=== PATIENT | male | born 1995 | race Caucasian/White ===

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

== ENCOUNTER 2017-04-21 22:48 | Observation (INO) | payer BC ==
[2017-04-21] MEDS ORDERED: Albuterol 2.5 MG/3 ML NEB.SOL* (0.083%) INH ONE (23:12)
[2017-04-21] MEDS ORDERED: Albuterol 2.5 MG/3 ML NEB.SOL* (0.083%) ONE ×2 (23:13)
[2017-04-21] MEDS ORDERED: Magnesium Sulfate 2 GM IV* 2 GM/50 ML BAG IVPB ONE (23:31)
[2017-04-21] MEDS ORDERED: methylPREDNISolone 125 MG* 2 ML VIAL IV ONE (23:31)
[2017-04-21] MEDS ORDERED: NS 0.9% 1000 ML* 1,000 ML IV ONE (23:31)
[2017-04-22 00:36] LABS: Hematocrit 51 % (42-52); Hemoglobin 17.4 g/dl (14.0-18.0); Mean Corpuscular HGB Conc 34 g/dl (31-36); Mean Corpuscular Hemoglobin 29 pg (27-31); Mean Corpuscular Volume 85 fL (80-94); Mean Platelet Volume 8 um3 (7.4-10.4); Red Blood Count 6.04 10^6/ul (4.0-5.4); Red Cell Distribution Width 14 % (10.5-15); White Blood Count 14.2 10^3/ul (3.5-10.8)
[2017-04-22 00:50] LABS: ALT 17 U/L (7-52); Albumin 4.8 g/dL (3.2-5.2); Alkaline Phosphatase 74 U/L (34-104); BUN/Creatinine Ratio 9.6 (8-20); Blood Urea Nitrogen 14 mg/dL (6-24); C Reactive Protein 1.89 mg/L (< 5.00); CO2 Carbon Dioxide 26 mmol/L (22-32); Calcium 9.5 mg/dL (8.6-10.3); Chloride 106 mmol/L (101-111); EGFR Non-African American 62.2 (>60); Globulin 3.2 g/dL (2-4); Glucose 88 mg/dL (70-100); Sodium 140 mmol/L (133-145)
[2017-04-22] MEDS ORDERED: Levalbuterol 1.25MG/0.5ML NEB INH ONE (00:55)
[2017-04-22] MEDS ORDERED: Ipratropium 0.5MG/2.5ML NEB* 0.5 MG/2.5 ML NEB.SOLN INH ONE (00:55)
[2017-04-22] MEDS ORDERED: Ipratropium 0.5MG/2.5ML NEB* 0.5 MG/2.5 ML NEB.SOLN ONE (00:59)
[2017-04-22] MEDS ORDERED: Levalbuterol 1.25MG/0.5ML NEB ONE (00:59)
[2017-04-22 01:13] LABS: Anion Gap 8 mmol/L (2-11)
[2017-04-22] MEDS ORDERED: Acetaminophen TAB* 325 MG PO PRN (02:34)
[2017-04-22] MEDS ORDERED: Ondansetron INJ* 2 MG/ML VIAL IV PRN (02:34)
[2017-04-22] MEDS ORDERED: Albuterol 2.5 MG/3 ML NEB.SOL* (0.083%) INH PRN (02:34)
[2017-04-22] MEDS ORDERED: NS 0.9% 1000 ML* 1,000 ML IV SCH (02:45)
[2017-04-22] MEDS ORDERED: Potassium Chlor TAB* 20 MEQ TAB.ER PO ONE (04:25)
[2017-04-22] MEDS ORDERED: Azithromycin TAB* 250 MG PO ONE (06:00)
--- NOTE | 2017-04-22 07:45 | RAD ---
Indication: Dyspnea. Chest tightness. Cough and fever. Asthma. Comparison: No relevant prior exams available on the [facility] P[facility] for comparison. Technique: Upright AP 2337 hours Report: Clear lungs and pleural spaces. Negative for pneumothorax. The heart, pulmonary vasculature, and mediastinal contours are unremarkable. Unremarkable osseous structures and soft tissue contours. IMPRESSION: No evidence for pneumonia or other acute pulmonary or cardiac process. Negative exam.
--- NOTE | 2017-04-22 08:26 | HP ---
ADMISSION HISTORY AND PHYSICAL: DATE OF ADMISSION: 04/22/17 PRIMARY CARE PROVIDER: "Dr. Baum" at [facility]. HEALTHCARE PROXY: His father. CODE STATUS: Full. SOURCE OF INFORMATION: History obtained from interview with the patient and his father. RELIABILITY: Good. CHIEF COMPLAINT: Shortness of breath. HISTORY OF PRESENT ILLNESS: This is a 21-year-old male with past medical history of asthma, who revealed 2 days prior to presentation, felt increased shortness of breath that felt like "mucus in his lungs" with worsening shortness of breath over today. [place] like cold weather was a trigger, which it has been in the past. Usually uses one puff of his albuterol per day up to 3 times per week, with 1 to 2 nighttime awakening per week. He has been never been hospitalized or to the emergency room for asthma in the past. Today he used his inhaler 10 times and his nebulizer 3 times with some improvement, although continuing shortness of breath. He has noted a cough for 2 to 3 days in addition to sick contacts with his mother and father who have also been coughing and had sinus congestion for the same duration of time. The patient has noticed sinus pressure as well as a mild headache. He has taken no NSAIDs recently except for a DayQuil today. He has noticed no change in his urination , symptoms or discharge. He does note a recent trip to [place] driving of which he just returned on , where he thinks he may have had decreased hydration. He was interviewed in the absence of his father, where he denies any restriction in his diet nor other drug use other than rare marijuana. When the patient presented to the emergency room, he was noted to be short of breath, 90% to 92% on room air with peak flow of just greater than 200, improved to 450 when seen by this author after administration of magnesium, ipratropium, albuterol nebulizers, and steroids. 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 Notes that temperature, stress, and anxiety can cause angioedema. Has involved his throat. SOCIAL HISTORY: Currently working at [employer]. Plans on going back to school. Occasional tobacco. No alcohol. Rare marijuana. Lives with his mother and father. FAMILY HISTORY: Mother with type 2 diabetes and bladder cancer. with diabetes and asthma. Sister has been noted to have proteinuria, which has been blamed on her premature . ALLERGIES: To AMOXICILLIN, CEFADROXIL, MONTELUKAST, PENICILLINS, and DIPHENHYDRAMINE. MEDICATIONS: Reviewed with patient. 1. Albuterol HFA or nebulizer p.r.n. as needed. REVIEW OF SYSTEMS: As per HPI. Otherwise, all other systems negative. PHYSICAL EXAMINATION VITAL SIGNS: Weight is 133/52, heart rate is 141 seen by this author, 96% on room air. T-max in the emergency room is 99.1. HEENT: His oropharynx is clear. He has moist mucous membranes. Sclerae anicteric. He has non-elevated JVD. No supraclavicular or cervical lymphadenopathy. LUNGS: Decreased aeration at the bases. Scattered wheezes, loudest in right mid lung. HEART: He is tachycardic. Heart rate is regular. No murmurs, rubs, or gallops. ABDOMEN: Soft, nontender, nondistended. EXTREMITIES: Warm and well perfused without clubbing, cyanosis, or edema. He has good skin turgor. He has scarring over this right knuckles. NEURO: He is not notably anxious. He is fidgety. Moves around a lot. Apparently some stress or anxiety that he denies. No depression. No agitation. PERTINENT LABORATORY DATA: Notable for white blood cell count of 14, which is 75% neutrophils, hemoglobin 17.4, and platelets 294. Sodium 140, chloride 106, BUN 14, creatinine 1.46, increased from prior of 0.9 0. Urinalysis is pending. Chest x-ray reviewed by this author, no apparent cardiopulmonary disease. EKG is pending at this time. ASSESSMENT AND PLAN: This is a 21-year-old man with past medical history of asthma, presenting with wheeze, increased shortness of breath, tachycardia, and acute kidney failure by RIFLE criteria. 1. Asthma exacerbation, improving by peak flow as well as clinically with the administration of albuterol, ipratropium, magnesium, and steroids. We will continue prednisone tomorrow 40 mg daily, albuterol as needed while awake, and peak flows every 6 hours, monitor for improvement. In the setting of his cough , sinus congestion headache, as well as sick contacts, he may have had bronchitis contributing to his asthma exacerbation of a greater severity that he has experienced since diagnosis. I will treat him with azithromycin 500 mg in the morning and then 250 mg for 4 additional days. 2. Tachycardia suspected in the setting of albuterol, although we will check EKG. Continue normal saline for 2 additional liters. 3. Acute kidney injury, unclear etiology. Denies all NSAID use, although additionally has a sister with what sounds like glomerular nephropathy. Urinalysis is pending at this time to check for protein. Unclear how his history of angioedema may link his current diagnoses together. 4. DVT prophylaxis. Low risk. Ambulate ad pati. [id number]/[facility] #: [id number] MTDNataly
[2017-04-22 08:58] VITALS: BP 99/28
[2017-04-22] MEDS ORDERED: predniSONE TAB* 20 MG PO SCH (09:00)
[2017-04-22] MEDS ORDERED: Levalbuterol 1.25MG/0.5ML NEB INH PRN (11:50)
[2017-04-22 12:17] LABS: Urine Bilirubin Negative (Negative); Urine Glucose 2+(150 mg/dL) (Negative); Urine Nitrite Negative (Negative)
[2017-04-22 12:23] LABS: BUN/Creatinine Ratio 22.2 (8-20); Calcium 9.3 mg/dL (8.6-10.3); EGFR African American 157.9 (>60); EGFR Non-African American 122.8 (>60); Potassium 4.1 mmol/L (3.5-5.0)
--- NOTE | 2017-04-22 15:53 | DCNOTE ---
Patient seen this morning and again in the afternoon. Feeling "95% better". Tachycardia improved over the course of the day. On exam, some diffuse inspiratory wheezing, some mild expiratory wheezing, good air movement Plan to discharge home with PO steroids, ABx. Refill home nebulizer solution.
--- NOTE | 2017-04-23 08:58 | DS ---
DISCHARGE SUMMARY: DATE OF ADMISSION: 04/21/17 DATE OF DISCHARGE: 04/22/17 PRIMARY CARE PHYSICIAN: Dr. Baum. PRINCIPAL DISCHARGE DIAGNOSIS: Asthma exacerbation. SECONDARY DIAGNOSES: History of attention deficit hyperactivity disorder, depression, physical urti caria, and angioedema. DISCHARGE MEDICATION REGIMEN: 1. Albuterol inhaler 2 puffs inhaled every 4 hours as needed for shortness of breath or wheezing. 2. Prednisone 40 mg by mouth daily. 3. Azithromycin 250 mg by mouth daily x4 doses. 4. Albuterol nebulizer 2.5 mg inhaled every 6 hours as needed for shortness of breath or wheezing. STUDIES DONE DURING HOSPITALIZATION: Chest x-ray. Impression: No evidence for pneumonia or other acute pulmonary or cardiac process. HISTORY OF PRESENT ILLNESS AND HOSPITAL SUMMARY: Please see the full history and physical by Dr. Almaz Francis for full details. Briefly, Mr. Wilburn is a 21-year- old man with a past medical histor y as above, who presented to the hospital with shortness of breath, diffuse wheezing, and cough. Th e patient had diffuse wheezing on exam. He was treated with steroids, magnesium, prednisone, and wa s started on azithromycin. He was also given 2 L of IV fluids as he was fairly tachycardic on admis veronika. He had evidence of FLAVIO, which resolved as well. Over the course of the day, the patient's symptoms improved significantly. He stated he was "95%" b ack to normal. His tachycardia improved. I suspect this is persistent to some degree due to predni sone and albuterol. The patient was able to ambulate around the unit with no issues. He will be di scharged home to complete 4 additional days of azithromycin as well as prednisone. He should follow up with his PCP as an outpatient. TIME SPENT: Total time spent on this discharge 45 minutes. This is a summary of the hospitalization. Please see the full medical record for further details. [id number]/[facility] #: [id number]
[2017-04-23] MEDS ORDERED: Azithromycin TAB* 250 MG PO SCH (09:00)
--- NOTE | 2017-04-23 12:38 | ED ---
Mikey Pinedo Alfonso, scribed for Antwan Gill MD on 04/21/17 at 2334 . Shortness of Breath - HPI Summary HPI Summary: This patient is a 21 year old M presenting to [facility] accompanied by father with a chief complaint of SOB since yesterday, worse since 8 hours ago. The patient states it felt like I was breathing through a straw 30 minutes ago. The patient rates the pain 0/10 in severity. Symptoms alleviated by breathing treatment in the ED. Patient reports rhinorrhea, cough, sinus pressure, and headache. Patient denies sore throat. Occasional tobacco use. Father reports he had similar symptoms four months ago with a diagnosis of bronchitis. PMHx includes asthma. - History of Current Complaint Chief Complaint: EDShortnessOfBreath Time Seen by Provider: 04/21/17 23:18 Hx Obtained From: Patient, Family/Sharepoint Designer Developer Onset/Duration: Gradual Onset, Lasting Days - yesterday, Worse Since - 8 hrs Timing: Constant Aggrevating Factors: Nothing Alleviating Factors: Other - breathing treatment - Allergy/Home Medications Allergies/Adverse Reactions: Allergies Allergy/AdvReac Type Severity Reaction Status Date / Time Amoxicillin Allergy Mild Rash And Verified 04/21/17 22:57 Itching Cefadroxil Allergy Mild Rash And Verified 04/21/17 22:57 Itching Montelukast [From Singulair] Allergy Mild Rash And Verified 04/21/17 22:57 Itching Penicillins Allergy Mild Itching Verified 04/21/17 22:57 Diphenhydramine Allergy Itching Verified 04/21/17 22:57 [From Benadryl] PMH/Surg Hx/FS Hx/Imm Hx Cardiovascular History: Denies: Hx Pacemaker/ICD Respiratory History: Reports: Hx Asthma - albuterol - PRN Sensory History: Denies: Hx Hearing Aid Opthamlomology History: Denies: Hx Legally Blind EENT History: Denies: Hx Deafness Psychiatric History: Reports: Hx Attention Deficit Hyperactivity Disorder, Hx Eating Disorder Denies: Hx Panic Disorder - Immunization History Date of Tetanus Vaccine: UTD Infectious Disease History: No Infectious Disease History: Denies: History Other Infectious Disease, Traveled Outside the [place] in Last 30 Days - Family History Known Family History: Positive: Diabetes - both parents Negative: Cardiac Disease, Hypertension - Social History Alcohol Use: None Substance Use Type: Reports: None Hx Tobacco Use: Yes Smoking Status (MU): Current Some Day Smoker Review of Systems Positive: Nasal Discharge, Other - sinus pressure. Negative: Sore Throat Positive: Shortness Of Breath, Cough Positive: Headache All Other Systems Reviewed And Are Negative: Yes Physical Exam - Summary Physical Exam Summary: VITAL SIGNS: Reviewed. GENERAL: Patient is a well-developed and nourished male who is lying comfortable in the stretcher. Patient is not in any acute respiratory distress. Able to speak in full sentences. HEAD AND FACE: No signs of trauma. No ecchymosis, hematomas or skull depressions. No sinus tenderness. EYES: PERRLA, EOMI x 2, No injected conjunctiva, no nystagmus. EARS: Hearing grossly intact. Ear canals and tympanic membranes are within normal limits. MOUTH: Oropharynx within normal limits. NECK: Supple, trachea is midline, no adenopathy, no JVD, no carotid bruit, no c- spine tenderness, neck with full ROM. CHEST: Symmetric, no tenderness at palpation LUNGS: Decreased breath sounds bilaterally. Slight wheezing. CVS: Regular rate and rhythm, S1 and S2 present, no murmurs or gallops appreciated. ABDOMEN: Soft, non-tender. No signs of distention. No rebound no guarding, and no masses palpated. Bowel sounds are normal. EXTREMITIES: FROM in all major joints, no edema, no cyanosis or clubbing. NEURO: Alert and oriented x 3. No acute neurological deficits. Speech is normal and follows commands. SKIN: Dry and warm Triage Information Reviewed: Yes Vital Signs On Initial Exam: Initial Vitals Temp Pulse Resp BP Pulse Ox 99.1 F 120 26 137/70 88 04/21/17 22:53 04/21/17 22:53 04/21/17 22:53 04/21/17 22:53 04/21/17 22:53 Vital Signs Reviewed: Yes Diagnostics - Vital Signs Vital Signs Temp Pulse Resp BP Pulse Ox 04/21/17 22:53 99.1 F 120 26 137/70 88 - Laboratory Result Diagrams: 04/21/17 23:10 04/22/17 01:49 Lab Statement: Any lab studies that have been ordered have been reviewed, and results considered in the medical decision making process. - Radiology CXR Radiology Interpretation Completed By: ED Physician - NAD Course/Dx - Course Assessment/Plan: This patient is a 21 year old M presenting to [facility] accompanied by father with a chief complaint of SOB since yesterday, worse since 8 hours ago. The patient states it felt like I was breathing through a straw 30 minutes ago. The patient rates the pain 0/10 in severity. Symptoms alleviated by breathing treatment in the ED. Patient reports rhinorrhea, cough, sinus pressure, and headache. Patient denies sore throat. Occasional tobacco use. Father reports he had similar symptoms four months ago with a diagnosis of bronchitis. PMHx includes asthma. CXR reveals NAD. Test results with no significant abnormalities except for WBC of 14.2, potassium of 3.3 for which the patient was given potassium chloride. In the ED course the patient was given IV fluids, duonebs, solumedrol, and magnesium for his asthma exacerbation. The patient became tachycardia therefore I changed the albuterol to xopenex. The patient is feeling better. However, he is still tight with diffuse wheezing. Therefore, I consulted Dr. Francis (hospitalist) who agrees to admit. The patient is hemodynamically stable and alert and oriented x3. - Diagnoses Provider Diagnoses: Asthma exacerbation - Physician Notifications Discussed Care of Patient With: Quinton Francis Time Discussed With Above Provider: 00:48 Instructed by Provider To: Other - Consulted Dr. Francis (hospitalist) who agrees to admit. Discharge - Discharge Plan Condition: Stable Disposition: ADMITTED TO [facility] The documentation as recorded by the Mikey manrique Alfonso accurately reflects the service I personally performed and the decisions made by me, Antwan Gill MD.
== END 2017-04-22 16:30 | disposition home or self-care (01) ==
LOC: ED 22:48 → MEDTELE 04-22 02:34
PROVIDERS: ADMIT Internal Medicine; ATTEND Hospitalist
DX: J45.901 Unspecified asthma with (acute) exacerbation (principal); R00.0 Tachycardia, unspecified; F90.9 Attention-deficit hyperactivity disorder, unspecified type; F32.9 Major depressive disorder, single episode, unspecified; Z88.0 Allergy status to penicillin; Z88.8 Allergy status to other drugs, medicaments and biological substances; N17.9 Acute kidney failure, unspecified; F17.200 Nicotine dependence, unspecified, uncomplicated
CPT/HCPCS: 36415; 71010; 80048; 80053; 81003; 83605; 85025; 86140; 87070; 87205; 93005; 94640; 96361; 96365; 96375; 99284; A9270-GY; G0378; J2930; J3475; J7512; J7644

== ENCOUNTER 2017-07-18 15:27 | Emergency (ER) | payer BC ==
[2017-07-18 15:45] VITALS: BP 144/55
--- NOTE | 2017-07-18 16:15 | RAD ---
INDICATION: RIGHT hand pain and swelling following punching injury. COMPARISON: August 01, 2016 RIGHT wrist TECHNIQUE: AP, lateral, and oblique views RIGHT hand. REPORT: Segmental comminuted mildly impacted fracture at the diaphysis of the fifth metacarpal with approximate 45 degrees apex dorsal angulation and overlying soft tissue swelling. Negative for additional fracture. Normal articular alignment. IMPRESSION: Nonarticular comminuted apex dorsal angulated fifth metacarpal fracture.
--- NOTE | 2017-07-18 16:28 | UC ---
Hand/Wrist HPI - HPI Summary HPI Summary: Patient presents with traumatic injury of the right hand, he got mad and punched a wall. He has soft tissue swelling and deformity noted of the fifth metacarple bone, He reports pain and swelling of the area. He denies numbness r tingling of the finger, he is able to move finger except the little finger. He denies and wrist, forearm of elbow pain. He states the pain is constant and worse with movement. - History Of Current Complaint Hx Obtained From: Patient, Family/Baseball Inspector And Repairer ?: No Onset/Duration: Sudden Onset Severity Initially: Moderate Severity Currently: Moderate Character Of Pain: Sharp Aggravating Factor(s): Movement, Lifting Alleviating Factor(s): Rest Associated Signs And Symptoms: Positive: Negative <Pamela Webber - Last Filed: 07/18/17 16:22> <Rosemary Gonzalez - Last Filed: 07/18/17 17:02> - History Of Current Complaint Chief Complaint: UCUpperExtremity Stated Complaint: HAND INJURY Time Seen by Provider: 07/18/17 15:54 - Allergies/Home Medications Allergies/Adverse Reactions: Allergies Allergy/AdvReac Type Severity Reaction Status Date / Time Amoxicillin Allergy Mild Rash And Verified 07/18/17 15:45 Itching Cefadroxil Allergy Mild Rash And Verified 07/18/17 15:45 Itching Montelukast [From Singulair] Allergy Mild Rash And Verified 07/18/17 15:45 Itching Penicillins Allergy Mild Itching Verified 07/18/17 15:45 Diphenhydramine Allergy Itching Verified 07/18/17 15:45 [From Benadryl] Home Medications: Home Medications NK [No Home Medications Reported] 07/18/17 [History Confirmed 07/18/17] PMH/Surg Hx/FS Hx/Imm Hx Previously Healthy: Yes - Surgical History Surgical History: None - Family History Known Family History: Positive: Diabetes - both parents Negative: Cardiac Disease, Hypertension - Social History Occupation: Student Lives: With Family Alcohol Use: None Substance Use Type: Marijuana Smoking Status (MU): Never Smoked Tobacco - Immunization History Vaccination Up to Date: Yes <Pamela Webber - Last Filed: 07/18/17 16:22> Review of Systems Constitutional: Negative Skin: Negative Eyes: Negative ENT: Negative Respiratory: Negative Cardiovascular: Negative Gastrointestinal: Negative Genitourinary: Negative Motor: Negative Neurovascular: Negative Musculoskeletal: Negative - right hand, Arthralgia, Decreased ROM, Edema, Myalgia Neurological: Negative Psychological: Negative Is Patient Immunocompromised?: No All Other Systems Reviewed And Are Negative: Yes <WebberPamelaporfirio Pinto - Last Filed: 07/18/17 16:22> Physical Exam Triage Information Reviewed: Yes Appearance: Well-Appearing Vital Signs: Initial Vital Signs Temp 98.9 F 07/18/17 15:31 Pulse 91 07/18/17 15:31 Resp 20 07/18/17 15:31 BP 144/55 07/18/17 15:31 Pulse Ox 100 07/18/17 15:31 Vital Signs Reviewed: Yes Eye Exam: Normal ENT Exam: Normal Neck exam: Normal Neck: Positive: 1 Respiratory Exam: Normal Cardiovascular Exam: Normal Abdominal Exam: Normal Musculoskeletal: Positive: Strength Limited @, ROM Limited @, Edema @, Other: - right hand inspection, soft tissue swelling noted over mid-shaft of the fifth metatarsal bone palpation, pain to palpation of the shaft of fifth metatarsal bone rom, unable to flex/extend the fifth finger vasc, radial and ulnar pulses palpable. neuro, no deficits to touch distal Neurological Exam: Normal Psychological Exam: Normal Skin Exam: Normal <Pamela Webber - Last Filed: 07/18/17 16:22> Vital Signs: Initial Vital Signs Temp 98.9 F 07/18/17 15:31 Pulse 91 07/18/17 15:31 Resp 20 07/18/17 15:31 BP 144/55 07/18/17 15:31 Pulse Ox 100 07/18/17 15:31 <Rosemary Gonzalez - Last Filed: 07/18/17 17:02> Hand/Wrist Course/Dx - Course Course Of Treatment: Patien presents s/p traumatic injury of the fifth metatarsal right hand. xrays revealed a fracture, the findings were discussed with the patient and he was given a copy of the report. He was referred to Dr. Kingsley and told to keep the splint on at all times, he was re-evaluted after the application of the splint and her remained neuro-vasc intact. Pain addressed with ibuprofen. Discharged home in stable condition. - Differential Dx/Diagnosis Differential Diagnosis/HQI/PQRI: Fracture Provider Diagnoses: fracture metatarsal <Pamela Webber - Last Filed: 07/18/17 16:22> Discharge <Pamela Webber - Last Filed: 07/18/17 16:22> <Rosemary Gonzalez - Last Filed: 07/18/17 17:02> - Discharge Plan Condition: Stable Disposition: HOME Patient Education Materials: Hand Fracture (ED) Referrals: Brian Baum MD [Primary Care Provider] - Quinton Kingsley MD [Medical Doctor] - Additional Instructions: You need to call tomorrow for follow up of the fracture. Attestation Statement User Type: Provider - I was available for consult. This patient was seen by the [facility]ARA. The patient was not presented to, seen by, or examined by me. -Wenceslao <Rosemary Gonzalez - Last Filed: 07/18/17 17:02>
== END 2017-07-18 16:20 | disposition home or self-care (01) ==
LOC: UCEAST 15:27
DX: S62.326A Displaced fracture of shaft of fifth metacarpal bone, right hand, initial encounter for closed fracture (principal); X83.8XXA Intentional self-harm by other specified means, initial encounter; Y93.89 Activity, other specified; Y92.9 Unspecified place or not applicable; Y99.9 Unspecified external cause status
CPT/HCPCS: 99211; G0463

== ENCOUNTER 2017-07-25 10:18 | Day surgery (SDC) | payer BC ==
--- NOTE | 2017-07-22 21:10 | HP ---
HISTORY AND PHYSICAL: DATE OF ADMISSION/SURGERY: 07/25/17 SURGEON: Quinton Kingsley MD.* (DICTATED BY KATY MAGALLANES) PROCEDURE: Right hand fifth metacarpal closed versus open reduction and pinning. CHIEF COMPLAINT: Right hand pain. HISTORY OF PRESENT ILLNESS: Charles is a 22-year-old male who reportedly punched a wall earlier today. He instantly felt pain in his right hand. He is right hand dominant. He was seen at [facility] and x-rays showed a fracture of the right fifth metacarpal. He was referred to our clinic. PAST MEDICAL HISTORY: 1. Asthma. 2. 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 3. Multiple concussions. PAST SURGICAL HISTORY: None. MEDICATIONS: Albuterol inhaler as needed. ALLERGIES: PENICILLIN causing hives and rashes, AMOXICILLIN hives and rashes, BENADRYL hives and rashes, SINGULAIR hives and rashes. He denies any allergy to latex or adhesive tape. FAMILY HISTORY: Both parents are diabetic. Father has history of bladder cancer. SOCIAL HISTORY: The patient denies any use of tobacco or alcohol. He does endorse occasionally smoking marijuana and otherwise denies illicit drug use. REVIEW OF SYSTEMS: Positive for his current complaint and numbness and tingling in his right hand. Otherwise, he endorses being able to walk a flight of stairs or a city block without stopping. He denies any history of anesthesia problems. He denies a history of DVT or PE. He also denies history of MRSA, hepatitis C, HIV infections. Otherwise, a 14-point review of systems including HEENT, integumentary, cardiothoracic, pulmonary, GI, , musculoskeletal, neurological, endocrine, and hematological systems were negative. PHYSICAL EXAMINATION GENERAL: Charles is a well-nourished, well-developed 22-year-old male in no acute distress. He is alert and oriented x3. He ambulates without a limp. He has normal mood and affect. VITAL SIGNS: Height 67 inches, weight 140 pounds. Pulse 61, blood pressure 140 /60, respirations 20, temperature 98.2. Pain level 0. BMI 21.9. HEENT: Normocephalic, atraumatic, pupils equally round and reactive to light, extraocular movements intact. NECK: Supple, no palpable cervical lymph nodes, thyroid is smooth and nontender. PULMONARY: Lungs clear to auscultation bilaterally with no wheezes, rales or rhonchi. CARDIAC: Regular rate and rhythm with no murmurs, rubs or gallops. No pedal edema, 2+ radial pulse bilaterally. ABDOMEN: Soft and nontender. NEUROLOGIC: Sensation intact to light touch bilaterally. On his right hand, sensation is grossly intact at the first dorsal webspace, volar, index and long finger and the ulnar side of his small finger. MUSCULOSKELETAL: Right hand, skin is intact. He does have swelling about the dorsal ulnar portion of his hand. Fifth finger is slightly shortened and does rotate radially with movement. 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 STUDIES: X-rays from [facility] were reviewed, which show a comminution at the fifth metacarpal of his right hand. IMPRESSION: Fracture of the fifth metacarpal bone, right hand. PLAN: Charles is scheduled to undergo right hand fifth metacarpal closed versus open reduction and pinning with Dr. Kingsley on 07/25/17. He will return to clinic 7 to 10 days postop for followup and possibly suture removal. Prescription for pain medication will be prescribed at the time of the surgery. KATY MAGALLANES [id number]/[facility] #: [id number] MTDD
[~2017-07-25 10:18] MED LIST: Buffered Lidocaine 0.9% SYRIN* 5 ML/SYR SYRINGE INTRADERM ONE; Dexamethasone IV* 4 MG/ML 1 ML (4 MG) IV SLOW PU ONE; Famotidine IV* 10 MG/ML 2 ML (20 mg) IV ONE
[2017-07-25] MEDS ORDERED: Clindamycin 900 MG IVPREMIX(* 900 MG/50 ML SDV IV ONE (10:44)
[2017-07-25] MEDS ORDERED: Dexamethasone IV* 4 MG/ML 1 ML (4 MG) ONE (11:03)
[2017-07-25] MEDS ORDERED: Famotidine IV* 10 MG/ML 2 ML (20 mg) ONE (11:03)
[2017-07-25] MEDS ORDERED: Midazolam* 1 MG/ML 2 ML VIAL (2 MG) ONE (14:05)
[2017-07-25] MEDS ORDERED: Bupivacaine 0.25% SDV* 30 ML ONE (14:23)
[2017-07-25] MEDS ORDERED: Lidocaine 2% PF * 5 ML VIAL ONE (15:31)
[2017-07-25] MEDS ORDERED: Ondansetron INJ* 2 MG/ML VIAL ONE (15:31)
[2017-07-25] MEDS ORDERED: Propofol* 10 MG/ML 20 ML BTL IV PUSH ONE (15:31)
[2017-07-25] MEDS ORDERED: Naloxone* 0.4 MG/ML 1 ML VIAL IV PRN (15:40)
[2017-07-25] MEDS ORDERED: Ketorolac INJ* 30 MG/ML 1 ML VIAL IV PRN (15:40)
[2017-07-25] MEDS ORDERED: Ketorolac INJ* 30 MG/ML 1 ML VIAL ONE (16:03)
[2017-07-25] MEDS ORDERED: HYDROcodone/ACETAMIN 5-325 MG* 1 TAB ONE ×2 (16:05→16:08)
[2017-07-25 16:27] VITALS: BP 141/70
--- NOTE | 2017-07-26 03:23 | OP ---
DATE OF OPERATION: 07/25/17 - [facility] DATE OF : [birth year] SURGEON: Quinton Kingsley MD PSYCHIATRIC ARNP: KATY Alvarado ANESTHESIOLOGIST: Dr. Pike. ANESTHESIA: General. PRE-OP DIAGNOSIS: Right displaced fifth metacarpal distal third shaft fracture. POST-OP DIAGNOSIS: Right displaced fifth metacarpal distal third shaft fracture. OPERATIVE PROCEDURE: Closed reduction and percutaneous pinning of right fifth metacarpal fracture. INDICATIONS: Charles had a punching injury. He had a displaced fracture. I talked to Charles and his parents about being healed that way or doing surgery to improve the position of the bone. They had wanted to proceed with surgery. ESTIMATED BLOOD LOSS: 1 mL. COMPLICATIONS: None. FINDINGS: As expected. DESCRIPTION OF PROCEDURE: Charles was seen in the preoperative holding area. The correct side, site, and procedure were identified. We came back to the operating room. The arm was prepped and draped in the usual fashion. A time- out was performed. I began by exsanguinating the arm with the Esmarch and the tourniquet was inflated to 250 mmHg. I made a 5-mm skin incision with the 15-blade just proximal to the base of the fifth metacarpal. I introduced a larger K-wire in and made a cortical window to open the bone on the ulnar and proximal aspect of the base. A smaller K-wire was then placed on the T handle luis felipe and the tip was bent so as to be able to guided at the bone. This was then driven up to the fracture site. The fracture was then reduced. The K-wire was driven across the fracture and embedded into the head of the fifth metacarpal. The alignment was very nicely checked on mini C-arm fluoroscopy. On fluoroscopic images, everything looked good. The clinical rotation and alignment was very nice. We went ahead and bent and clipped the wire. This was dressed with Xeroform. The area was infiltrated with 0.25% plain Marcaine as was the fracture site. Little bit of the incision at the pin site was closed with some 4-0 Monocryl suture prior to this. The pin was then well padded and dressed and then an ulnar gutter splint on the intrinsic plus position was applied, leaving them back finger free. Tourniquet was deflated and he was taken to the recovery room in stable condition. [id number]/[facility] #: [id number] MTDNataly
--- NOTE | 2017-07-30 16:56 | RAD ---
INDICATION: Traumatic fracture of the fifth finger operative reduction. COMPARISON: Comparison is made with a prior x-ray study of the right hand from July 18, 2017. TECHNIQUE: 58 seconds of intermittent fluoroscopic guidance were provided and 5 spot films of the right hand were obtained in the operating room. FINDINGS: The films demonstrate placement of a K wire spanning the comminuted fracture of the fifth metacarpal. The bones are in improved alignment and positioning. IMPRESSION: INTRAOPERATIVE CONTROL FILMS. CPT II Codes: 6045F
== END 2017-07-25 16:31 | disposition home or self-care (01) ==
LOC: OREAST 10:18
PROVIDERS: ATTEND Orthopaedic Surgery Hand Surgery
DX: S62.326A Displaced fracture of shaft of fifth metacarpal bone, right hand, initial encounter for closed fracture (principal); W22.8XXA Striking against or struck by other objects, initial encounter; Y92.9 Unspecified place or not applicable; J45.909 Unspecified asthma, uncomplicated
CPT/HCPCS: 76000; C1776; J1100; J1885; J2250; J2405; J2704

== ENCOUNTER 2018-04-05 20:57 | Emergency (ER) | payer BC ==
[2018-04-05] MEDS ORDERED: Albuterol 2.5 MG/3 ML NEB.SOL* (0.083%) INH ONE (21:02)
[2018-04-05 21:08] VITALS: BP 106/53
[2018-04-05] MEDS ORDERED: methylPREDNISolone 125 MG* 2 ML VIAL IV ONE (21:08)
[2018-04-05] MEDS ORDERED: Acetaminophen TAB* 325 MG PO ONE (21:40)
--- NOTE | 2018-04-05 22:08 | UC ---
Respiratory Complaint HPI - HPI Summary HPI Summary: This patient is a 22 [address] old presenting to [facility] accompanied by father with a chief complaint of cough and febrile illness since yesterday. Patient states that he also has asthma and is having trouble breathing with the cough. The pain is rated 0/10 in severity. Symptoms aggravated by nothing. Symptoms alleviated by nothing. Patient states he took his nebulizer before arriving, but to very little relief. Patient additionally reports yellowish-green phlegm. - History of Current Complaint Stated Complaint: FEVER,TROUBLE BREATHING,ASTHMA Time Seen by Provider: 04/05/18 21:01 Hx Obtained From: Patient Onset/Duration: Lasting Hours Timing: Constant Severity Currently: Mild Pain Intensity: 0 Pain Scale Used: 0-10 Numeric Character: Cough: Productive, Sputum Description: - greenish-yellow Aggravating Factors: Nothing Alleviating Factors: Nothing Associated Signs And Symptoms: Positive: Wheezing - Allergies/Home Medications Allergies/Adverse Reactions: Allergies Allergy/AdvReac Type Severity Reaction Status Date / Time MS Amoxicillin [Amoxicillin] Allergy Mild Rash And Verified 07/23/17 14:49 Itching MS Cefadroxil [Cefadroxil] Allergy Mild Rash And Verified 07/23/17 14:49 Itching MS Montelukast Allergy Mild Rash And Verified 07/23/17 14:49 [From Singulair] Itching MS Penicillins [Penicillins] Allergy Mild Itching Verified 07/23/17 14:49 MS Diphenhydramine Allergy Itching Verified 07/23/17 14:49 [From Benadryl] duracef Allergy Itching Uncoded 04/05/18 21:05 Home Medications: Home Medications Albuterol 2.5MG/3ML (0.083%)* [Ventolin 2.5 MG/3 ML NEB.MADHU*] 1 neb PO Q6HR PRN 04/05/18 [History Confirmed 04/05/18] Diphenhydram/PE/Dm/Acetamin/GG [Mucinex Fast-Max Day Time] 1 mis PO Q12HR PRN [History Confirmed 04/05/18] PMH/Surg Hx/FS Hx/Imm Hx Previously Healthy: Yes Other Cardiovascular History: Negative: Hypertension Respiratory History: Asthma - Surgical History Surgical History: None - Family History Known Family History: Positive: Diabetes - both parents Negative: Cardiac Disease, Hypertension - Social History Lives: With Family Alcohol Use: None Substance Use Type: Marijuana Substance Use Comment - Amount & Last Used: infrequent Smoking Status (MU): Never Smoked Tobacco - Immunization History Vaccination Up to Date: Yes Review of Systems Constitutional: Fever Respiratory: Shortness Of Breath, Cough All Other Systems Reviewed And Are Negative: Yes Physical Exam - Summary Physical Exam Summary: Appearance: Well-appearing, Well-nourished Skin: Warm, Dry, No rash Eyes: Normal, PERRL, EOMI, sclera anicteric ENT: Normal Neck: Supple, nontender Respiratory: Bilateral expiratory wheezes, no rales Cardiovascular: S1, S2, no murmur, no rub, no gallop Abdomen: Soft, nontender, no organomegaly Bowel sounds: Present Musculoskeletal: Normal, Strength/ROM Intact, no edema, pulses symmetrical Neurological: Normal, A&Ox3, cranial nerves II-XII WNL, follows commands, gait not tested, sensation intact to pin and light touch Psychiatric: affect normal, behavior appropriate, dressed appropriately, judgment intact Triage Information Reviewed: Yes Vital Signs: Initial Vital Signs Temp 100.8 F 04/05/18 21:03 Pulse 94 04/05/18 21:03 Resp 18 04/05/18 21:03 BP 106/53 04/05/18 21:03 Pulse Ox 97 04/05/18 21:03 UC Diagnostic Evaluation - Laboratory O2 Sat by Pulse Oximetry: 97 Discharge - Discharge Plan Referrals: Brian Baum MD [Primary Care Provider] - - Attestation Statements Document Initiated by Scribe: Yes
[2018-04-05] MEDS ORDERED: predniSONE TAB* 20 MG PO ONE (22:28)
[2018-04-05] MEDS ORDERED: Levofloxacin TAB* 500 MG PO ONE (22:32)
--- NOTE | 2018-04-06 11:39 | RAD ---
INDICATION: Asthma exacerbation COMPARISON: Chest x-ray dated April 21, 2017 TECHNIQUE: PA and lateral views of the chest were obtained. FINDINGS: The heart and mediastinum are normal in size and contour. The lungs are grossly clear. There is no evidence of large pleural effusion. Visualized bones are normal for the patient's age. There is no radiographic evidence of free air beneath the diaphragm IMPRESSION: No radiographic evidence of acute cardiopulmonary disease. R0
--- NOTE | 2018-04-07 10:44 | UC ---
Discharge - Sign-Out/Discharge Documenting (check all that apply): Post-Discharge Follow Up All imaging exams completed and their final reports reviewed: Yes - Discharge Plan Condition: Stable Disposition: HOME-RECOMMEND TO ED Prescriptions: Fluticasone-Salmeterol 500-50* [Advair Diskus 500-50*] 1 puff INH BID #1 diskus Levofloxacin TAB* [Levaquin TAB*] 500 mg PO DAILY #5 tab predniSONE [Prednisone 20 MG TAB] 40 mg PO DAILY #60 tablet Patient Education Materials: Asthma (DC), Fever in Adults (ED) Referrals: Brian Baum MD [Primary Care Provider] - Additional Instructions: spoke at length regarding the presence of severe asthma. recommended further evaluation in the ER possible admission. patient has refused , in lieu of admission or evaluation in the ER called in [facility], - Billing Disposition and Condition Condition: STABLE Disposition: Home-Recommend to ED
== END 2018-04-05 22:45 | disposition home health service (06) ==
LOC: UCEAST 20:57
DX: R05 Cough (principal); R50.9 Fever, unspecified; J45.909 Unspecified asthma, uncomplicated; Z88.1 Allergy status to other antibiotic agents; Z88.0 Allergy status to penicillin; Z88.8 Allergy status to other drugs, medicaments and biological substances
CPT/HCPCS: 71046; 96374; 99213; A9270-GY; G0463; J2930; J7512